=== PATIENT | male | born 1945 ===

== ENCOUNTER 2025-02-10 06:59 | Day surgery (SDC) | payer MEDICARE, OTHER ==
[~2025-02-10 06:59] MED LIST: ALPRAZolam 0.25 MG TAB PO PRN; ALPRAZolam 0.5 MG TAB PO PRN; NITROGLYCERIN SL TABS 0.4 MG TAB SUBLINGUAL PRN
[2025-02-10] MEDS: IV FLUID CONTINUATION 1,000 ML IV ONE (07:30)
[2025-02-10] MEDS: SODIUM CHLORIDE 0.9% 1,000 ML in EMPTY BAG 1 BAG IV SCH (07:30)
[2025-02-10] MEDS: ASPIRIN 325 MG TAB PO ONE (07:50)
[2025-02-10] MEDS: HEPARIN SODIUM,PORCINE 10,000 UNIT in SODIUM CHLORIDE 0.9% 1,000 ML IRRIGATION PRN (09:51)
[2025-02-10] MEDS: HEPARIN SODIUM,PORCINE (1 ML) 2,500 UNIT in SODIUM CHLORIDE 0.9% 250 ML IRRIGATION PRN (09:52)
[2025-02-10] MEDS: MIDAZOLAM 2 MG/2 ML VIAL IVP ONE (09:57)
[2025-02-10] MEDS: LIDOCAINE 1% INJ 10MG/ML (20 ML MDV) SQ ONE (09:58)
[2025-02-10] MEDS: IOPAMIDOL-370 100ML BTL INJ ONE (10:18)
[2025-02-10] MEDS ORDERED: RX INFO: IV CONTRAST WAS GIVEN 1 EACH MISC MISCELLANE PRN (10:27)
--- NOTE | 2025-02-10 10:31 | P.PCN ---
Date of Procedure: 02/10/25 Operative Findings: CARDIAC CATHETERIZATION PERFORMING PHYSICIAN: Franco Lawson MD, RPVI PROCEDURE PERFORMED: 1. Selective right and left coronary angiogram and SOLANO to LAD angiogram and SVG to LCx and SVG to RCA angiogram 2. Left heart catheterization 3. Ultrasound-guided access of the right common femoral artery and selective right common femoral artery angiogram INDICATION: Cardiomyopathy in this 79-year-old gentleman with known CAD and prior surgical revascularization COMPLICATION: None APPROACH: Right common femoral artery LEVEL OF SEDATION: Moderate with sedation in length of 28 minutes PROCEDURE DESCRIPTION: After obtaining an informed consent, the patient was brought to cardiac metallurgy laboratory technician. Local anesthesia was performed using lidocaine subcutaneously. The right common femoral artery was cannulated using Seldinger technique, the guidewire passed easily, following that we advanced a 6 Marshallese sheath dilator assembly, the wire and dilator were removed and sheath was flushed. Selective right and left coronary angiogram using a 6-Marshallese JR4 and JL catheters. The SOLANO to LAD angiogram was performed using JR4 catheter. The SVG to LCx angiogram was also performed using the JR4 catheter. The SVG to RCA angiogram was performed using multipurpose catheter Following that we did left heart catheterization using 6-Marshallese pigtail catheter. The procedure was completed there was no complication. SELECTIVE CORONARY ANGIOGRAM: The right coronary artery: Is a chronically occluded Left main: Has critical lesion involving the mid to distal part The left circumflex: Has critical disease in the proximal part The left anterior descending artery: Is occluded Coronary bypasses angiogram The SOLANO to LAD is patent The SVG to LCx has critical disease The SVG to RCA is occluded HEMODYNAMICS: The LVEDP was about 12 mmHg with no significant gradient across aortic valve CONCLUSION: 1. Severe triple-vessel CAD 2. Patent SOLANO to LAD and critical disease involving the SVG to LCx and occluded SVG to RCA POSTPROCEDURE MANAGEMENT: Consider medical treatment versus percutaneous revascularization
[2025-02-10] MEDS: SODIUM CHLORIDE 0.9% 1,000 ML IV SCH (10:35)
[2025-02-10] MEDS: HYDROmorphone 0.5 MG/0.5 ML SYRINGE IVP STA (12:47)
[2025-02-11 04:49] LABS: Basophils % (A) 1.5 %; Eosinophils % (A) 4.6 %; HCT 34.5 % (39.6-50.0); HGB 11.1 g/dL (13.0-17.0); Lymphocytes # (A) 1.22 10*3/uL (0.90-5.00); Lymphocytes % (A) 18.6 %; MCH 28.8 pg (27.0-32.0); MCHC 32.2 g/dL (32.0-37.0); MCV 89.4 fL (80.0-97.0); Mean Platelet Volume 9.9 fL (9.5-12.2); Monocytes # (A) 0.65 10*3/uL (0.20-1.00); Monocytes % (A) 9.9 %; Neutrophils # (A) 4.27 10*3/uL (1.80-7.70); Neutrophils % (A) 65.1 %; Platelet Count 252 10*3/uL (140-440); RBC 3.86 10*6/uL (4.40-5.60); WBC 6.56 10*3/uL (4.50-10.00)
[2025-02-11 05:00] LABS: African American GFR (CKD) 49 (>60 ml/min/1.73 sqM); Anion Gap 9 mmol/L; Blood Urea Nitrogen 32 mg/dL (9-20); Calcium 9.1 mg/dL (8.4-10.2); Carbon Dioxide 22 mmol/L (22-30); Chloride 107 mmol/L (98-107); Glucose 98 mg/dL (74-99); Non-African American GFR(CKD) 42 (>60 ml/min/1.73 sqM); Potassium 4.5 mmol/L (3.5-5.1); Sodium 138 mmol/L (137-145)
[2025-02-11 08:03] VITALS: BP 115/61; PULSE 84; RESP 16; TEMP 98.2
[2025-02-11] MEDS: FUROSEMIDE 20 MG TAB PO SCH (09:12)
[2025-02-11] MEDS: METOPROLOL SUCCINATE (ER) 25 MG TAB.ER.24H PO SCH (09:12)
[2025-02-11] MEDS: ASPIRIN 81 MG PO SCH (09:12)
--- NOTE | 2025-02-11 12:39 | P.DS ---
Providers Attending physician: Franco Lawson Primary care physician: [facility] Course: This is an 79-year-old male who underwent cardiac catheterization yesterday with Dr. Lawson revealing severe triple-vessel CAD. Patent SOLANO to LAD and critical disease involving the SVG to circumflex and occluded SVG to RCA. Patient examined this morning at the bedside. Patient currently denies chest pain or pressure. He denies shortness of breath. The patient was deemed stable for discharge home today per Dr. Lawson. Patient will be brought back in a couple weeks to undergo PCI. Discharge diagnosis Coronary artery disease, status post cardiac catheterization as above Chronic kidney disease Nurse practitioner note has been reviewed by physician. Signing provider agrees with the documented findings, assessment, and plan of care documented by CONFIDENTIAL INVESTIGATOR as a scribe. Plan - Discharge Summary Discharge Rx Participant: No New Discharge Prescriptions: No Action allopurinoL 100 mg PO HS Potassium Chloride ER [K-Dur 20] 20 meq PO HS Magnesium Oxide [Magnesium] 500 mg PO HS Fenofibrate 160 mg PO HS Atorvastatin [Lipitor] 20 mg PO HS Aspirin [Adult Low Dose Aspirin EC] 81 mg PO DAILY Semaglutide [Ozempic] 0.5 mg SQ CORTÉS Mv-Min/Folic/K1/Lycopen/Lutein [Centrum Silver Men Tablet] 1 each PO DAILY Furosemide [Lasix] 20 mg PO DAILY Finasteride [Proscar] 5 mg PO DAILY Metoprolol Succinate (ER) [Toprol Xl] 25 mg PO BID Discharge Medication List Aspirin [Adult Low Dose Aspirin EC] 81 mg PO DAILY 02/06/25 [History] Atorvastatin [Lipitor] 20 mg PO HS 02/06/25 [History] Fenofibrate 160 mg PO HS 02/06/25 [History] Finasteride [Proscar] 5 mg PO DAILY 02/06/25 [History] Furosemide [Lasix] 20 mg PO DAILY 02/06/25 [History] Magnesium Oxide [Magnesium] 500 mg PO HS 02/06/25 [History] Metoprolol Succinate (ER) [Toprol Xl] 25 mg PO BID 02/06/25 [History] Mv-Min/Folic/K1/Lycopen/Lutein [Centrum Silver Men Tablet] 1 each PO DAILY 02/06/25 [History] Potassium Chloride ER [K-Dur 20] 20 meq PO HS 02/06/25 [History] Semaglutide [Ozempic] 0.5 mg SQ CORTÉS 02/06/25 [History] allopurinoL 100 mg PO HS 02/06/25 [History] Follow up Appointment(s)/Referral(s): Franco Lawson MD [STAFF PHYSICIAN] - 02/26/25 4:15 pm (FOLLOW UP APPOINTMENT IS MADE. PATIENT WILL SEE DR. LAWSON AT THE [facility] OFFICE. )
--- NOTE | 2025-02-11 12:41 | CA ---
Transthoracic Echo Report Name: Paul Flores Age: 79 Gender: M : 1945 Exam Date: 02/11/2025 09:47 Exam Location: [facility] Ht (in): 71 Wt (lb): 199 Ordering Physician: Jenni Kelley Attending/Referring Phys: [id number], [employer] Fatemeh Grant RDCS Procedure CPT: Indications: lv function, CAD, assess for thrombus Cardiac Hx: Technical Quality: Good Contrast 1: Definity Total Dose (mL): 2 Contrast 2: Total Dose (mL): MEASUREMENTS (Male / Female) Normal Values 2D ECHO LV Diastolic Diameter PLAX 5.6 cm 4.2 - 5.9 / 3.9 - 5.3 cm LV Systolic Diameter PLAX 4.6 cm IVS Diastolic Thickness 1.3 cm 0.6 - 1.0 / 0.6 - 0.9 cm LVPW Diastolic Thickness 1.2 cm 0.6 - 1.0 / 0.6 - 0.9 cm LV Relative Wall Thickness 0.5 RV Internal Dim ED PLAX 4.2 cm LA Systolic Diameter LX 4.6 cm 3.0 - 4.0 / 2.7 - 3.8 cm LV Diastolic Volume MOD BP 180.8 cm??? 67 - 155 / 56 - 104 cm??? LV Systolic Volume MOD BP 138.3 cm??? 22 - 58 / 19 - 49 cm??? LV Ejection Fraction MOD BP 23.5 % >= 55 % LV Cardiac Index MOD BP 1525.0 cm???/min???m??? LV Diastolic Volume MOD 4C 192.2 cm??? LV Systolic Volume MOD 4C 149.0 cm??? LV Ejection Fraction MOD 4C 22.5 % LV Cardiac Index MOD 4C 1550.7 cm???/min???m??? LV Diastolic Length 4C 8.8 cm LV Systolic Length 4C 8.4 cm LV Diastolic Volume MOD 2C 194.0 cm??? LV Systolic Volume MOD 2C 148.5 cm??? LV Ejection Fraction MOD 2C 23.4 % LV Cardiac Index MOD 2C 1634.1 cm???/min???m??? LV Diastolic Length 2C 9.3 cm LV Systolic Length 2C 8.8 cm M-MODE Aortic Root Diameter MM 4.1 cm LA Systolic Diameter MM 2.1 cm LA Ao Ratio MM 0.5 DOPPLER AV Peak Velocity 110.8 cm/s AV Peak Gradient 4.9 mmHg Mitral E Point Velocity 94.0 cm/s Mitral A Point Velocity 60.7 cm/s Mitral E to A Ratio 1.5 MV Deceleration Time 159.1 ms MV E' Velocity 3.4 cm/s Mitral E to MV E' Ratio 27.3 TR Peak Velocity 291.6 cm/s TR Peak Gradient 34.0 mmHg Right Ventricular Systolic Press 44.0 mmHg FINDINGS Left Ventricle Left ventricular ejection fraction is estimated at 20-25 %. Mildly increased septal wall thickness. Moderately increased left ventricular diastolic volume. Severely increased left ventricular systolic volume. Severely decreased left ventricular ejection fraction. Right Ventricle Severe right ventricular dilatation. Mild pulmonary hypertension. Right Atrium Moderate right atrial dilatation. No right atrial thrombus or mass seen. Left Atrium Mildly increased left atrial diameter. No left atrial thrombus or mass present. Mitral Valve Structurally normal mitral valve. No evidence for mitral valve prolapse. No mitral stenosis. Mild mitral regurgitation. Aortic Valve Trileaflet aortic valve. No aortic stenosis. Mild aortic regurgitation. Tricuspid Valve Structurally normal tricuspid valve. Mild tricuspid regurgitation. Pulmonic Valve Structurally normal pulmonic valve. Trace pulmonic regurgitation. Pericardium No pericardial or pleural effusion. Aorta Moderate aortic dilatation at the level of the sinuses of valsalva 41 mm CONCLUSIONS Impaired LV function with EF between 20 to 25% Mild aortic regurgitation Mild mitral regurgitation Previewed by: Dr. Franco Lawson MD (Electronically Signed) Final Date: 11 February 2025 12:40
[2025-02-11] MEDS ORDERED: ATORVASTATIN 20 MG TAB PO SCH (21:00)
[2025-02-11] MEDS ORDERED: FENOFIBRATE 160 MG TAB PO SCH (21:00)
[2025-02-11] MEDS ORDERED: ATORVASTATIN 40 MG TAB PO SCH (21:00)
== END 2025-02-11 15:00 | disposition home or self-care (01) ==
LOC: CATHCVL 06:59 → 6NMEDSUR 10:25 → CATHCVL 02-11 15:00
PROVIDERS: ATTEND Internal Medicine Interventional Cardiology
DX: I25.10 Atherosclerotic heart disease of native coronary artery without angina pectoris (principal); I42.9 Cardiomyopathy, unspecified; E78.5 Hyperlipidemia, unspecified; I12.9 Hypertensive chronic kidney disease with stage 1 through stage 4 chronic kidney disease, or unspecified chronic kidney disease; N18.9 Chronic kidney disease, unspecified; Z79.82 Long term (current) use of aspirin; Z79.899 Other long term (current) drug therapy; Z91.040 Latex allergy status; Z88.8 Allergy status to other drugs, medicaments and biological substances; Z88.1 Allergy status to other antibiotic agents
CPT/HCPCS: 93459; 80048; 85025; 99152; 99153; C8929; J2250; J1644 ×2; J2003; Q9957; J1171; Q9967; 93306